=== PATIENT | female | born 1945 | race Caucasian/White ===

== ENCOUNTER → 2024-07-02 | Outpatient (CLI) | payer MEDICARE, SELFPAY | END | disposition home or self-care (01) | LOC: CDIM 14:21 → COPL 14:33 | PROVIDERS: PCP Nurse Practitioner Family; Referring Provider Nurse Practitioner Family; Visit Provider Nurse Practitioner Family | DX: Z00.00 Encounter for general adult medical examination without abnormal findings (principal); S81.012A Laceration without foreign body, left knee, initial encounter; M54.42 Lumbago with sciatica, left side; L03.011 Cellulitis of right finger; R09.89 Other specified symptoms and signs involving the circulatory and respiratory systems; M19.90 Unspecified osteoarthritis, unspecified site; L30.9 Dermatitis, unspecified; L03.113 Cellulitis of right upper limb; Z13.820 Encounter for screening for osteoporosis; Z20.828 Contact with and (suspected) exposure to other viral communicable diseases; K44.9 Diaphragmatic hernia without obstruction or gangrene; N32.81 Overactive bladder; D50.9 Iron deficiency anemia, unspecified; R20.0 Anesthesia of skin; U07.1 COVID-19; R41.3 Other amnesia; F03.90 Unspecified dementia, unspecified severity, without behavioral disturbance, psychotic disturbance, mood disturbance, and anxiety; N39.0 Urinary tract infection, site not specified; R06.2 Wheezing; R10.13 Epigastric pain; E11.65 Type 2 diabetes mellitus with hyperglycemia; R11.0 Nausea; J30.2 Other seasonal allergic rhinitis; M79.89 Other specified soft tissue disorders; R41.0 Disorientation, unspecified; R53.82 Chronic fatigue, unspecified; J18.9 Pneumonia, unspecified organism; Z71.2 Person consulting for explanation of examination or test findings; G44.209 Tension-type headache, unspecified, not intractable; J18.0 Bronchopneumonia, unspecified organism; W19.XXXA Unspecified fall, initial encounter; R13.19 Other dysphagia; K21.9 Gastro-esophageal reflux disease without esophagitis; J01.10 Acute frontal sinusitis, unspecified; R39.81 Functional urinary incontinence; R06.02 Shortness of breath; E78.5 Hyperlipidemia, unspecified; R29.6 Repeated falls; I25.10 Atherosclerotic heart disease of native coronary artery without angina pectoris; J40 Bronchitis, not specified as acute or chronic; M54.6 Pain in thoracic spine; M54.12 Radiculopathy, cervical region; M54.16 Radiculopathy, lumbar region ==

== ENCOUNTER → 2024-07-31 | Outpatient (CLI) | payer MEDICARE, SELFPAY ==
[2024-07-31 08:53] LABS: Quantiferon-TB* See Sep Rpt
[2024-07-31 09:26] LABS: Collection Type, Urine Clean Catch
[2024-07-31 09:46] LABS: Basophils # (Auto) 0.1 Thou/mm3 (0.0-0.2); Basophils % (Auto) 1 % (0-2.5); Eosinophils # (Auto) 0.5 Thou/mm3 (0.0-0.5); Eosinophils % (Auto) 4 % (0-10); Hematocrit 35.8 % (36.0-46.0); Immature Granulocytes % (Auto) 1 % (0-0); Immature Granulocytes Auto 0.09 Thou/mm3 (0.00-0.00); Lymphocytes # (Auto) 1.6 Thou/mm3 (1.0-4.8); Lymphocytes % (Auto) 14 % (10-50); Mean Corpuscular HGB Conc 33.5 g/dl (31.0-37.0); Mean Corpuscular Volume 84 fL (80-100); Monocytes # (Auto) 0.9 Thou/mm3 (0.0-0.8); Monocytes % (Auto) 8 % (0-12); Neutrophils # (Auto) 8.1 Thou/mm3 (1.8-7.7); Neutrophils % (Auto) 72 % (37-80); Nucleated Red Blood Cell % 0 /100 WBC (0); Platelet Count 302 Thou/mm3 (140-440); RDW Standard Deviation 41.3 fL (36.4-46.3); Red Blood Count 4.28 Miln/mm3 (4.00-5.20); White Blood Count 11.3 Thou/mm3 (3.6-11.0)
[2024-07-31 09:52] LABS: Bilirubin,Urine Negative (Negative); Blood,Urine Negative (Negative); Clarity,Urine Clear (Clear/Hazy); Color,Urine Colorless (Lt Yel-Yel); Culture Indicated,Urine Not Indicated; Glucose, Urine Negative (Negative); Ketones,Urine Negative (Negative); Leukocyte Esterase,Urine Negative (Negative); Nitrite,Urine Negative (Negative); Protein,Urine Negative (Neg - Trace); RBC,Urine 1 /hpf (0-3); Specific Gravity,Urine 1.009 (1.001-1.035); Squamous Epithelial Cell,Urine < 1 /hpf (0-5); Urobilinogen,Urine Negative mg/dL (0.0-1.0); WBC,Urine 2 /hpf (0-5)
[2024-07-31 10:21] LABS: Glucose Estimated Average 214 mg/dL (80-131); Hemoglobin A1C 9.1 % Hgb (4.8-6.0)
[2024-07-31 11:05] LABS: Amphetamine/Methamp Scrn,U Negative (Negative); Barbiturate Screen,Urine Negative (Negative); Benzodiazepines Screen,Urine Negative (Negative); Benzoylecgonine Screen, Ur Negative (Negative); Creatinine MALB Rnd Ur 18 mg/dL (30-125); Fentanyl Screen,Urine Negative (Negative); Microalbumin, Random Urine < 3 mg/L (0-300); Opiate Screen,Urine Positive (Negative); THC Screen,Urine Negative (Negative)
[2024-07-31 11:16] LABS: Alanine Aminotransferase 14 U/L (10-49); Albumin, Serum 4.5 gm/dL (3.4-4.8); Albumin/Globulin Ratio 1.9 (1.2-2.2); Alkaline Phosphatase 98 U/L (46-116); Anion Gap 10 (7-16); Aspartate Amino Transferase 19 U/L (0-34); BUN/Creatinine Ratio 18 Ratio (12-20); Bilirubin,Direct 0.1 mg/dL (0.0-0.3); Bilirubin,Total 0.4 mg/dL (0.3-1.2); Blood Urea Nitrogen 18 mg/dL (9-23); Calcium 9.4 mg/dL (8.3-10.6); Calcium (Corrected) 9.4 mg/dL (8.5-10.1); Carbon Dioxide 29.8 mMol/L (20.0-31.0); Cardiac Risk Estimate 2.9 RATIO (3.7-5.6); Chloride 102 mMol/L (98-107); Cholesterol 149 mg/dL (132-200); Free T4 (Free Thyroxine) 1.11 ng/dL (0.89-1.76); Globulin 2.4 gm/dL (2.3-3.5); Glucose 201 mg/dL (74-106); HDL Cholesterol 52 mg/dL (40-60); LDL Cholesterol,Calculated 71 mg/dL (0-130); Magnesium 1.3 mg/dL (1.6-2.6); Osmolality,Calculated 291 (275-295); Phosphorous 3.6 mg/dL (2.4-5.1); Potassium 4.2 mMol/L (3.4-5.1); Sodium 142 mMol/L (136-145); Thyroid Stimulating Hormone 1.96 uIU/mL (0.55-4.78); Total Protein 6.9 gm/dL (5.7-8.2); Triglycerides 130 mg/dL (30-150); eGFR 57 See Note
[2024-07-31 11:25] LABS: Ferritin 30 ng/mL (7.3-270.7); Iron 89 mcg/dL (50-170); Total Iron Binding Capacity 375 mcg/dL (250-425); Vitamin B12 > 2000 pg/mL (211-911); Vitamin D 25 Hydroxy Total 24.7 ng/mL (7.3-40.2)
[2024-08-06 06:42] LABS: T3 Uptake* 28 % (22-35)
== END | disposition home or self-care (01) ==
LOC: COPL 08:27
PROVIDERS: PCP Nurse Practitioner Family; Referring Provider Nurse Practitioner Family; Visit Provider Nurse Practitioner Family
DX: D50.9 Iron deficiency anemia, unspecified (principal); E11.65 Type 2 diabetes mellitus with hyperglycemia; E78.5 Hyperlipidemia, unspecified; F03.90 Unspecified dementia, unspecified severity, without behavioral disturbance, psychotic disturbance, mood disturbance, and anxiety; G44.209 Tension-type headache, unspecified, not intractable; G62.9 Polyneuropathy, unspecified; I25.10 Atherosclerotic heart disease of native coronary artery without angina pectoris; J01.10 Acute frontal sinusitis, unspecified; J18.0 Bronchopneumonia, unspecified organism; J18.9 Pneumonia, unspecified organism; J20.8 Acute bronchitis due to other specified organisms; J30.2 Other seasonal allergic rhinitis; K21.9 Gastro-esophageal reflux disease without esophagitis; K44.9 Diaphragmatic hernia without obstruction or gangrene; L03.011 Cellulitis of right finger; L03.113 Cellulitis of right upper limb; L30.9 Dermatitis, unspecified; M19.90 Unspecified osteoarthritis, unspecified site; M54.12 Radiculopathy, cervical region; M54.16 Radiculopathy, lumbar region; M54.42 Lumbago with sciatica, left side; M54.6 Pain in thoracic spine; M79.89 Other specified soft tissue disorders; N32.81 Overactive bladder; N39.0 Urinary tract infection, site not specified; R06.02 Shortness of breath; R06.2 Wheezing; R09.89 Other specified symptoms and signs involving the circulatory and respiratory systems; R10.13 Epigastric pain; R11.0 Nausea; R13.19 Other dysphagia; R20.0 Anesthesia of skin; R29.6 Repeated falls; R39.81 Functional urinary incontinence; R41.0 Disorientation, unspecified; R41.3 Other amnesia; R53.82 Chronic fatigue, unspecified; S81.012A Laceration without foreign body, left knee, initial encounter; U07.1 COVID-19; W19.XXXA Unspecified fall, initial encounter; Z00.00 Encounter for general adult medical examination without abnormal findings; Z13.820 Encounter for screening for osteoporosis; Z20.828 Contact with and (suspected) exposure to other viral communicable diseases; Z68.31 Body mass index [BMI] 31.0-31.9, adult; Z68.32 Body mass index [BMI] 32.0-32.9, adult; Z71.2 Person consulting for explanation of examination or test findings
CPT/HCPCS: 36415; 80053; 80061; 80076; 80307; 81001; 82043; 82248; 82306; 82570; 82607; 82728; 83036; 83540; 83550; 83735; 84100; 84439; 84443; 84479; 85025; 86480

== ENCOUNTER → 2024-08-01 | Outpatient (CLI) | payer MEDICARE, SELFPAY ==
--- NOTE | 2024-08-01 12:30 | XR_ITS ---
Examination: Abdomen sonogram, complete Date and time of exam: August 01, 2024 1251 hours INDICATIONS: Right upper abdominal pain beginning one month ago. Technique: Multiple real-time grayscale transabdominal sonographic images of the abdomen have been obtained. Findings: Cholelithiasis Gallbladder wall 0.2 cm Common bile duct 0.5 cm Pancreas 2.6 cm Aorta not enlarged Liver 15.9 cm fatty infiltration mildly irregular contour no focal liver lesions Normal hepatopedal portal venous flow Patent IVC Right kidney 10.4 cm cortex 1.6 cm Left kidney 10.6 cm cortex 2.0 cm Mild renal parenchyma scar formation Spleen 9.9 cm IMPRESSION: Cholelithiasis, negative for cholecystitis Fatty liver, suspicious for primary hepatocellular disease
== END | disposition home or self-care (01) ==
PROVIDERS: PCP Internal Medicine; Referring Provider Nurse Practitioner Family; Visit Provider Nurse Practitioner Family
DX: K80.20 Calculus of gallbladder without cholecystitis without obstruction (principal); K76.0 Fatty (change of) liver, not elsewhere classified
CPT/HCPCS: 76700

== ENCOUNTER → 2024-08-22 | Outpatient (CLI) | payer MEDICARE, SELFPAY ==
--- NOTE | 2024-08-22 09:30 | XR_ITS ---
Examination: Esophagram standard Fluoroscopy Upright PA chest Upright soft tissue lateral neck single view 25 spot fluoroscopic films of the esophagus Date and time: August 22, 2024 1007 hours INDICATIONS: Difficulty swallowing 4 months. FINDINGS: Isolated primary peristaltic esophageal waves Numerous secondary and tertiary esophageal contractions Apparent esophageal diverticulum 15 mm in the lower esophagus Moderate intermittent gastroesophageal reflux Prominent retrocardiac gastric hernia No definite intrinsic esophageal lesions Fluoroscopy 0.14 minutes IMPRESSION: Esophageal dysmotility 15 mm apparent esophageal diverticulum in the lower esophagus, consider endoscopy follow-up Moderate intermittent gastroesophageal reflux
== END | disposition home or self-care (01) ==
LOC: CDIM 09:42
PROVIDERS: PCP Internal Medicine; Referring Provider Nurse Practitioner Family; Visit Provider Nurse Practitioner Family
DX: K22.5 Diverticulum of esophagus, acquired (principal); K21.9 Gastro-esophageal reflux disease without esophagitis
CPT/HCPCS: 74220; A4649

== ENCOUNTER 2025-02-06 12:05 | Day surgery (SDC) | payer MEDICARE, SELFPAY ==
--- NOTE | 2025-02-05 06:00 | EKG_ITS ---
[facility] Test Date: 2025-02-05 Pat Name: SANGEETHA GRACIA Department: Room: - Gender: Female Mental Health Therapist: CHASENemesio : 1945 Requested By: Jesus Rankin Order Number: [id number] Reading MD: Jesus Rankin Measurements Intervals [place] Rate: 66 P: 2 [place]: 138 QRS: -30 QRSD: 101 T: 77 QT: 403 QTc: 423 Interpretive Statements SINUS RHYTHM BORDERLINE LEFT AXIS DEVIATION [QRS AXIS < -20] NONSPECIFIC T-WAVE ABNORMALITY Compared to ECG 06/14/2023 18:46:35 T-wave abnormality now present Left anterior fascicular block no longer present Myocardial infarct finding no longer present /store/[email or web address]/[id number]/ecg/[id number].pdf
[2025-02-05 17:41] LABS: Alanine Aminotransferase 30 U/L (10-49); Albumin, Serum 4.5 gm/dL (3.4-4.8); Albumin/Globulin Ratio 1.6 (1.2-2.2); Alkaline Phosphatase 120 U/L (46-116); Anion Gap 9 (7-16); Aspartate Amino Transferase 24 U/L (0-34); BUN/Creatinine Ratio 12 Ratio (12-20); Bilirubin,Total 0.5 mg/dL (0.3-1.2); Blood Urea Nitrogen 12 mg/dL (9-23); Calcium 9.5 mg/dL (8.3-10.6); Calcium (Corrected) 9.5 mg/dL (8.5-10.1); Carbon Dioxide 36.2 mMol/L (20.0-31.0); Chloride 93 mMol/L (98-107); Creatinine (Component) 1.0 mg/dL (0.6-1.3); Globulin 2.9 gm/dL (2.3-3.5); Glucose 209 mg/dL (74-106); Osmolality,Calculated 281 (275-295); Potassium 3.7 mMol/L (3.4-5.1); Sodium 138 mMol/L (136-145); Total Protein 7.4 gm/dL (5.7-8.2); eGFR 57 See Note
[2025-02-06 08:30] VITALS: BP 187/79; PULSE 71; PULSE 74; RESP 18; TEMP 37; O2SAT 95; BMI 31.8
[2025-02-06 16:38] VITALS: BP 147/81; PULSE 78; RESP 12; TEMP 37; O2SAT 98
--- NOTE | 2025-02-06 16:38 | SUR.PHASEII ---
pt received to [facility]. report from nurse carmona and dr valenzuela. pt awakes and answers questions. denies pain and nausea. vss. breathing even and unlabored.
[2025-02-06 16:43] VITALS: BP 158/70; PULSE 78; RESP 14; TEMP 36.8; O2SAT 93
[2025-02-06] MEDS: RINGERS LACTATED 1000 ML 1,000 ML 20 ML IV (16:44)
[2025-02-06 16:48] VITALS: BP 145/76; PULSE 76; RESP 15; TEMP 36.8; O2SAT 94
[2025-02-06 16:53] VITALS: BP 160/79; PULSE 75; RESP 18; TEMP 37; O2SAT 98
[2025-02-06 17:08] VITALS: BP 155/91; PULSE 75; RESP 19; TEMP 36.9; O2SAT 95
--- NOTE | 2025-02-06 17:15 | SUR.PHASEII ---
pt discharged with all belongings via wheelchair.. denies pain and nausea. tolerating po jello. vss. breathing even and unlabored. both patient and daughter verbalized discharge instructions. will follow up as scheduled.
== END 2025-02-06 17:15 | disposition home or self-care (01) ==
PROVIDERS: Anesthesiology; Referring Provider Internal Medicine Gastroenterology; Visit Provider Internal Medicine Gastroenterology
PROC: (CPT 43239; principal; 2025-02-06 15:15)
DX: K44.9 Diaphragmatic hernia without obstruction or gangrene (principal); I10 Essential (primary) hypertension; Q39.9 Congenital malformation of esophagus, unspecified; Z01.810 Encounter for preprocedural cardiovascular examination; M54.9 Dorsalgia, unspecified; G89.29 Other chronic pain; K29.50 Unspecified chronic gastritis without bleeding
CPT/HCPCS: 43239; 36415; 80053; 93005; A4649; J7120